=== PATIENT | female | born 2000 | race Caucasian/White ===

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

== ENCOUNTER 2022-03-10 22:05 | Emergency (ER) | payer OTHER ==
[2022-03-10 23:07] VITALS: TEMP 98.6
[2022-03-11] MEDS ORDERED: SODIUM CHLORIDE 0.9% 1,000 ML IV ONE (01:20)
[2022-03-11 02:00] LABS: Basophils # (A) 0.1 k/uL (0-0.2); Basophils % (A) 1 %; Eosinophils # (A) 0.2 k/uL (0-0.7); Eosinophils % (A) 2 %; HCT 35.5 % (34.0-46.0); HGB 11.5 gm/dL (11.4-16.0); Lymphocytes # (A) 4.5 k/uL (1.0-4.8); Lymphocytes % (A) 42 %; MCH 27.2 pg (25.0-35.0); MCHC 32.5 g/dL (31.0-37.0); MCV 83.7 fL (80.0-100.0); Mean Platelet Volume 7.4; Monocytes # (A) 0.6 k/uL (0-1.0); Monocytes % (A) 6 %; Neutrophils # (A) 5.1 k/uL (1.3-7.7); Neutrophils % (A) 48 %; Platelet Count 253 k/uL (150-450); RBC 4.24 m/uL (3.80-5.40); RDW 14.4 % (11.5-15.5); WBC 10.6 k/uL (4.0-11.0)
--- NOTE | 2022-03-11 02:12 | ED ---
Female Urogenital HPI - General Chief complaint: Vaginal Bleeding Stated complaint: Spotting blood Time Seen by Provider: 03/11/22 01:19 Source: patient, RN notes reviewed Mode of arrival: ambulatory Limitations: no limitations - History of Present Illness Initial comments: This is a pleasant 21-year-old female. She presents immersed Saturday complaining of vaginal spotting. Patient states this is much less than a normal period she had minimal cramping earlier which has resolved. Patient states her last visit. He was about one and half to 2 months ago. Patient doesn't recall the actual date. Patient is A0. No headache, no fever or chills, no changes in vision or hearing, no sore throat or difficulty with speech, no neck pain, no chest pain or shortness of breath, no abdominal pain, no nausea or vomiting, no changes in urination or bowel movements, no numbness or tingling, no extremity pain, no skin rashes or lesions. MD Complaint: vaginal bleeding - Related Data Home Medications Medication Instructions Recorded Confirmed Benzoyl Peroxide [Benzoyl Peroxide 1 applic TOPICAL DAILY PRN 05/18/21 05/18/21 Cleanser] Previous Rx's Medication Instructions Recorded Ondansetron Odt [Zofran ODT] 4 mg PO Q8HR PRN #10 tab 04/29/21 Sertraline [Zoloft] 50 mg PO DAILY tab 05/12/21 traMADol HCl [Ultram] 50 mg PO TID PRN #9 tab 05/12/21 Allergies Allergy/AdvReac Type Severity Reaction Status Date / Time No Known Allergies Allergy Verified 03/10/22 23:07 Review of Systems ROS Statement: Those systems with pertinent positive or pertinent negative responses have been documented in the HPI. ROS Other: All systems not noted in ROS Statement are negative. Past Medical History Past Medical History: No Reported History Additional Past Medical History / Comment(s): Vag 02/17/21 History of Any Multi-Drug Resistant Organisms: None Reported Past Surgical History: Cholecystectomy Additional Past Surgical History / Comment(s): bile duct stent Past Anesthesia/Blood Transfusion Reactions: No Reported Reaction Past Psychological History: ADD/ADHD Smoking Status: Vaper Past Alcohol Use History: Rare Past Drug Use History: Marijuana General Exam Limitations: no limitations General appearance: alert, in no apparent distress Head exam: Present: atraumatic, normocephalic, normal inspection Eye exam: Present: normal appearance, PERRL, EOMI. Absent: scleral icterus, conjunctival injection, periorbital swelling ENT exam: Present: normal exam, mucous membranes moist Neck exam: Present: normal inspection. Absent: tenderness, meningismus, lymphadenopathy Respiratory exam: Present: normal lung sounds bilaterally. Absent: respiratory distress, wheezes, rales, rhonchi, stridor Cardiovascular Exam: Present: regular rate, normal rhythm, normal heart sounds. Absent: systolic murmur, diastolic murmur, rubs, gallop, clicks GI/Abdominal exam: Present: soft, normal bowel sounds. Absent: distended, tenderness, guarding, rebound, rigid Extremities exam: Present: normal inspection, full ROM, normal capillary refill. Absent: tenderness, pedal edema, joint swelling, calf tenderness Back exam: Present: normal inspection Neurological exam: Present: alert, oriented X3, CN II-XII intact Psychiatric exam: Present: normal affect, normal mood Skin exam: Present: warm, dry, intact, normal color. Absent: rash Course Vital Signs 03/10/22 03/11/22 23:01 02:07 Temperature 98.6 F Pulse Rate 88 74 Respiratory 15 16 Rate Blood Pressure 107/65 112/66 O2 Sat by Pulse 97 98 Oximetry Medical Decision Making - Lab Data Result diagrams: 03/11/22 01:51 03/11/22 01:51 Lab Results 03/11/22 03/11/22 03/11/22 Range/Units 01:51 01:51 01:53 WBC 10.6 (4.0-11.0) k/uL RBC 4.24 (3.80-5.40) m/uL Hgb 11.5 (11.4-16.0) gm/dL Hct 35.5 (34.0-46.0) % MCV 83.7 (80.0-100.0) fL MCH 27.2 (25.0-35.0) pg MCHC 32.5 (31.0-37.0) g/dL RDW 14.4 (11.5-15.5) % Plt Count 253 (150-450) k/uL MPV 7.4 Neutrophils % 48 % Lymphocytes % 42 % Monocytes % 6 % Eosinophils % 2 % Basophils % 1 % Neutrophils # 5.1 (1.3-7.7) k/uL Lymphocytes # 4.5 (1.0-4.8) k/uL Monocytes # 0.6 (0-1.0) k/uL Eosinophils # 0.2 (0-0.7) k/uL Basophils # 0.1 (0-0.2) k/uL Sodium 140 (137-145) mmol/L Potassium 3.9 (3.5-5.1) mmol/L Chloride 108 H (98-107) mmol/L Carbon Dioxide 24 (22-30) mmol/L Anion Gap 8 mmol/L BUN 11 (7-17) mg/dL Creatinine 0.58 (0.52-1.04) mg/dL Est GFR (CKD-EPI)AfAm >90 (>60 ml/min/1.73 sqM) Est GFR (CKD-EPI)NonAf >90 (>60 ml/min/1.73 sqM) Glucose 86 (74-99) mg/dL Calcium 9.3 (8.4-10.2) mg/dL Total Bilirubin 0.3 (0.2-1.3) mg/dL AST 23 (14-36) U/L ALT 20 (4-34) U/L Alkaline Phosphatase 65 (38-126) U/L Total Protein 7.5 (6.3-8.2) g/dL Albumin 4.3 (3.5-5.0) g/dL HCG, Quant 1277.9 mIU/mL Urine Color Urine Appearance (Clear) Urine pH (5.0-8.0) Ur Specific [place] (1.001-1.035) Urine Protein (Negative) Urine Glucose (UA) (Negative) Urine Ketones (Negative) Urine Blood (Negative) Urine Nitrite (Negative) Urine Bilirubin (Negative) Urine Urobilinogen (<2.0) mg/dL Ur Leukocyte Esterase (Negative) Blood Type A Positive Blood Type Recheck A Pos Bld Type Recheck Status No 03/11/22 Range/Units 02:50 WBC (4.0-11.0) k/uL RBC (3.80-5.40) m/uL Hgb (11.4-16.0) gm/dL Hct (34.0-46.0) % MCV (80.0-100.0) fL MCH (25.0-35.0) pg MCHC (31.0-37.0) g/dL RDW (11.5-15.5) % Plt Count (150-450) k/uL MPV Neutrophils % % Lymphocytes % % Monocytes % % Eosinophils % % Basophils % % Neutrophils # (1.3-7.7) k/uL Lymphocytes # (1.0-4.8) k/uL Monocytes # (0-1.0) k/uL Eosinophils # (0-0.7) k/uL Basophils # (0-0.2) k/uL Sodium (137-145) mmol/L Potassium (3.5-5.1) mmol/L Chloride (98-107) mmol/L Carbon Dioxide (22-30) mmol/L Anion Gap mmol/L BUN (7-17) mg/dL Creatinine (0.52-1.04) mg/dL Est GFR (CKD-EPI)AfAm (>60 ml/min/1.73 sqM) Est GFR (CKD-EPI)NonAf (>60 ml/min/1.73 sqM) Glucose (74-99) mg/dL Calcium (8.4-10.2) mg/dL Total Bilirubin (0.2-1.3) mg/dL AST (14-36) U/L ALT (4-34) U/L Alkaline Phosphatase (38-126) U/L Total Protein (6.3-8.2) g/dL Albumin (3.5-5.0) g/dL HCG, Quant mIU/mL Urine Color Yellow Urine Appearance Clear (Clear) Urine pH 7.0 (5.0-8.0) Ur Specific [place] 1.019 (1.001-1.035) Urine Protein Negative (Negative) Urine Glucose (UA) Negative (Negative) Urine Ketones Negative (Negative) Urine Blood Negative (Negative) Urine Nitrite Negative (Negative) Urine Bilirubin Negative (Negative) Urine Urobilinogen <2.0 (<2.0) mg/dL Ur Leukocyte Esterase Negative (Negative) Blood Type Blood Type Recheck Bld Type Recheck Status - Radiology Data Radiology results: report reviewed, image reviewed Disposition Clinical Impression: Threatened miscarriage in early Disposition: HOME SELF-CARE Condition: Good Instructions (If sedation given, give patient instructions): Threatened Miscarriage (ED) Additional Instructions: Return later today between the hours of 8 AM and 5 PM for an outpatient pelvic ultrasound. Return laboratory in 48 hours for a repeat blood test. Make a follow-up appointment with Dr. Alvarez. Have the results of your testing sent to Dr. Kim Burnette. Follow-up with your regular physician as directed. Return to the ER immediately if any symptoms worsen, new symptoms arise, or any other problems develop. Is patient prescribed a controlled substance at d/c from ED?: No Referrals: Derian Burnette Jr, DO [Primary Care Provider] - 1-2 days
[2022-03-11 02:13] LABS: ALT 20 U/L (4-34); AST 23 U/L (14-36); African American GFR (CKD) >90 (>60 ml/min/1.73 sqM); Albumin 4.3 g/dL (3.5-5.0); Alkaline Phosphatase 65 U/L (38-126); Anion Gap 8 mmol/L; Blood Urea Nitrogen 11 mg/dL (7-17); Calcium 9.3 mg/dL (8.4-10.2); Carbon Dioxide 24 mmol/L (22-30); Chloride 108 mmol/L (98-107); Glucose 86 mg/dL (74-99); Non-African American GFR(CKD) >90 (>60 ml/min/1.73 sqM); Potassium 3.9 mmol/L (3.5-5.1); Sodium 140 mmol/L (137-145); Total Bilirubin 0.3 mg/dL (0.2-1.3); Total Protein 7.5 g/dL (6.3-8.2)
[2022-03-11 02:29] LABS: HCG,Quantitative Serum 1277.9 mIU/mL
[2022-03-11 02:41] VITALS: BP 112/66; PULSE 74; RESP 16
[2022-03-11 03:07] LABS: Appearance,Urine Clear (Clear); Bilirubin,Urine Negative (Negative); Blood,Urine Negative (Negative); Color,Urine Yellow; Glucose,Urine (UA) Negative (Negative); Ketones,Urine Negative (Negative); Leukocyte Esterase,Urine Negative (Negative); Nitrite,Urine Negative (Negative); Protein,Urine Negative (Negative); Specific Gravity,Urine 1.019 (1.001-1.035); Urobilinogen,Urine <2.0 mg/dL (<2.0)
== END 2022-03-11 03:41 | disposition home or self-care (01) ==
LOC: EC 22:05
DX: O20.0 Threatened abortion (principal); F17.209 Nicotine dependence, unspecified, with unspecified nicotine-induced disorders; Z3A.00 Weeks of gestation of pregnancy not specified
CPT/HCPCS: 36415; 80053; 81003; 84702; 85025; 86900; 86901

== ENCOUNTER → 2022-03-12 | Outpatient (CLI) | payer OTHER ==
--- NOTE | 2022-03-12 10:24 | US ---
EXAMINATION TYPE: Transabdominal DATE OF EXAM: 03/12/2022 9:25 AM COMPARISON: NONE CLINICAL HISTORY: O20.0 THREATENED . Patient seen in EC last night, given an order to arrive in the department this morning. Patient has not seen OBGYN yet for this . 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 . Positive beta-hCG test. EXAM PERFORMED: Transvaginal (TV) and Transabdominal (TA) EXAM MEASUREMENTS: GESTATIONAL AGE / DATING Physician Established: ( weeks/ days) EDC: Not established Dates by LMP: (4 weeks/6 days) EDC: 11/13/22 Dates by First Scan: ( weeks/ days) EDC: No previous Dates by Current Scan for: ( weeks/ days) EDC: MATERNAL ANATOMY Uterus: 8.8 x 6.1 x 4.3 cm with cervical cyst = 0.4 cm Right Ovary: 2.8 x 2.2 x 1.6 cm Left Ovary: 3.2 x 2.0 x 1.7 cm Post CDS / Adnexa: wnl Presence of free fluid: no Presence of corpus luteal cyst: ? Masslike structure off right ovary= 2.1 x 2.3 x 1.7 cm with cystic area =1.5 x 1.0 x 0.5 cm Presence of subchorionic bleed: no GESTATION / SURVEY CRL: No definite pole seen ( weeks/ days) MSD: 0.6 cm ( 5 weeks/1 days) Yolk Sac (normal less than 6mm): Not seen Heart Rate: Not seen bpm Rhythm: IUP: No IUP seen at this time Date of LMP: 02/10/22 Beta HcG (if available): Patient sent for bloodwork after ultrasound. Heterogeneous anteverted uterus.Endometrium thickened up to 11 mm. There is central oval 7 x 7 x 3 mm structure could reflect early gestational sac. There is Suggestion of developing pole measurin g 1 mm. No yolk sac. No free fluid in pelvis. Both ovaries are seen. Within right ovary there a a few tiny thin-walled cysts. There is however alicia cent right ovary a mass with central oval anechoic or cystic component and peripheral thickened wall. IMPRESSION: Above findings could reflect too early to visualize intrauterine but ectopic pr egnancy and/or heterotopic needs to be considered given the right adnexal extraovarian mass . Serial beta hCG and ultrasound follow-up advised.
== END | disposition home or self-care (01) ==
LOC: RADUSWWP 08:41
PROVIDERS: ATTEND Emergency Medicine
DX: O20.0 Threatened abortion (principal); Z3A.00 Weeks of gestation of pregnancy not specified
CPT/HCPCS: 76801; 76817

== ENCOUNTER 2022-03-23 09:10 | Emergency (ER) | payer OTHER ==
[2022-03-23 09:41] VITALS: PULSE 92; RESP 18; TEMP 98.6
[2022-03-23 09:43] VITALS: BP 100/62
[2022-03-23 10:32] LABS: HCT 40.5 % (34.0-46.0); HGB 12.9 gm/dL (11.4-16.0); MCH 26.9 pg (25.0-35.0); Mean Platelet Volume 7.1; Platelet Count 303 k/uL (150-450); RBC 4.82 m/uL (3.80-5.40); RDW 14.2 % (11.5-15.5)
--- NOTE | 2022-03-23 11:24 | ED ---
Female Urogenital HPI - General Chief complaint: Vaginal Bleeding Stated complaint: vaginal bleeding, early Time Seen by Provider: 03/23/22 10:08 Source: patient Mode of arrival: ambulatory Limitations: no limitations - History of Present Illness Initial comments: Patient is a 21-year-old A0 female at approximately 7 weeks who presents to the emergency department with a chief complaint of vaginal bleeding. Patient initially had spotting on 03/10 with minimal cramping. She was evaluated in the emergency department with a serum hCG was 1,277.9. Ultrasound was not available so patient returned for outpatient ultrasound on 03/12. Ultrasound showed a possible early gestational sac and suggestion of a developing pole with no yolk sac. There was also a right ovarian mass. Patient has not followed up with her OBGYN Dr. Alvarez yet. She states that yesterday around 3 AM she felt a dubon of blood in her underwear. Possibly one small clot. She then put a pad on and reports minimal spotting on her pad. She reports mild abdominal cramping that has since resolved. She does admit to vaginal intercourse prior to falling asleep. Patient did come to the emergency department at this time however left without being seen. She presents now requesting ultrasound. Denies fever, chills, burning with urination, and other concerns. - Related Data Home Medications Medication Instructions Recorded Confirmed Benzoyl Peroxide [Benzoyl Peroxide 1 applic TOPICAL DAILY PRN 05/18/21 05/18/21 Cleanser] Previous Rx's Medication Instructions Recorded Ondansetron Odt [Zofran ODT] 4 mg PO Q8HR PRN #10 tab 04/29/21 Sertraline [Zoloft] 50 mg PO DAILY tab 05/12/21 traMADol HCl [Ultram] 50 mg PO TID PRN #9 tab 05/12/21 Cephalexin [Keflex] 250 mg PO Q6HR #20 cap 03/23/22 Allergies Allergy/AdvReac Type Severity Reaction Status Date / Time No Known Allergies Allergy Verified 03/23/22 09:41 Review of Systems ROS Statement: Those systems with pertinent positive or pertinent negative responses have been documented in the HPI. ROS Other: All systems not noted in ROS Statement are negative. Past Medical History Past Medical History: No Reported History Additional Past Medical History / Comment(s): Vag 02/17/21 History of Any Multi-Drug Resistant Organisms: None Reported Past Surgical History: Cholecystectomy Additional Past Surgical History / Comment(s): bile duct stent Past Anesthesia/Blood Transfusion Reactions: No Reported Reaction Past Psychological History: ADD/ADHD Smoking Status: Vaper Past Alcohol Use History: Rare Past Drug Use History: Marijuana General Exam Limitations: no limitations General appearance: alert, in no apparent distress Head exam: Present: atraumatic, normocephalic, normal inspection Eye exam: Present: normal appearance, PERRL, EOMI. Absent: scleral icterus, conjunctival injection, periorbital swelling ENT exam: Present: normal exam, mucous membranes moist Respiratory exam: Present: normal lung sounds bilaterally. Absent: respiratory distress, wheezes, rales, rhonchi, stridor Cardiovascular Exam: Present: regular rate, normal rhythm, normal heart sounds. Absent: systolic murmur, diastolic murmur, rubs, gallop, clicks GI/Abdominal exam: Present: soft, normal bowel sounds. Absent: distended, tenderness, guarding, rebound, rigid Back exam: Present: normal inspection, full ROM. Absent: tenderness Neurological exam: Present: alert, oriented X3, CN II-XII intact Psychiatric exam: Present: normal affect, normal mood Skin exam: Present: warm, dry, intact, normal color. Absent: rash Course Vital Signs 03/23/22 09:37 Temperature 98.6 F Pulse Rate 92 Respiratory 18 Rate Blood Pressure 100/62 O2 Sat by Pulse 94 L Oximetry Medical Decision Making - Medical Decision Making This is a 21-year-old female presenting with vaginal bleeding. Thorough history and examination were performed. Patient is afebrile. Denies fever and chills. Abdomen is soft and nontender. I will obtain serum beta hCG for trending as well as ultrasound. Ultrasound shows a single live intrauterine gestation and a now identified gestational sac, yolk sac and pole. Beta hCG is 55,617. RhoGam is not indicated. Results discussed with patient. Patient states she has an appointment with Dr. Alvarez the first week of March. She is instructed to follow-up with Dr. Alvarez as scheduled for beta HCG trending. I recommended one week of pelvic rest and until vaginal bleeding is completely resolved. She is instructed to return if she experiences more vaginal bleeding, abdominal pain, or other new or concerning symptoms. Patient verbalizes understanding and is agreeable to this plan. Patient did leave with urinalysis pending. There is possible infection however it is contaminated with squamous cells. I will treat for urinary tract infection. I sent prescription to pharmacy. I also called patient and left a message on her voicemail. Dr. Wooten is my attending. - Lab Data Result diagrams: 03/23/22 10:18 Lab Results 03/23/22 03/23/22 03/23/22 Range/Units 10:18 10:18 11:56 WBC 10.0 (4.0-11.0) k/uL RBC 4.82 (3.80-5.40) m/uL Hgb 12.9 (11.4-16.0) gm/dL Hct 40.5 (34.0-46.0) % MCV 84.0 (80.0-100.0) fL MCH 26.9 (25.0-35.0) pg MCHC 32.0 (31.0-37.0) g/dL RDW 14.2 (11.5-15.5) % Plt Count 303 (150-450) k/uL MPV 7.1 HCG, Quant 61806.2 mIU/mL Urine Color Yellow Urine Appearance Cloudy H (Clear) Urine pH 6.0 (5.0-8.0) Ur Specific [place] 1.029 (1.001-1.035) Urine Protein Trace H (Negative) Urine Glucose (UA) Negative (Negative) Urine Ketones Negative (Negative) Urine Blood Moderate H (Negative) Urine Nitrite Negative (Negative) Urine Bilirubin Negative (Negative) Urine Urobilinogen <2.0 (<2.0) mg/dL Ur Leukocyte Esterase Trace H (Negative) Urine RBC 3 (0-5) /hpf Urine WBC 2 (0-5) /hpf Ur Squamous Epith Cells 18 H (0-4) /hpf Urine Bacteria Rare H (None) /hpf Urine Mucus Many H (None) /hpf Disposition Clinical Impression: Vaginal bleeding during Disposition: HOME SELF-CARE Condition: Good Instructions (If sedation given, give patient instructions): Non-Threatening F irst Trimester Vaginal Bleed (ED) Additional Instructions: Please abstain from vaginal intercourse for one week and until resolution of bleeding. Follow-up with your INSURANCE FOLLOW UP REPRESENTATIVE at her previously scheduled appointment in early March. Return to the emergency department if you experience new, concerning, or worsening symptoms. Prescriptions: Cephalexin [Keflex] 250 mg PO Q6HR #20 cap Is patient prescribed a controlled substance at d/c from ED?: No Referrals: Derian Burnette Jr, [Primary Care Provider] - 1-2 days Time of Disposition: 11:46
--- NOTE | 2022-03-23 11:31 | US ---
EXAMINATION TYPE: Transabdominal DATE OF EXAM: 03/23/2022 11:01 AM COMPARISON: Prior ultrasound 11 days ago CLINICAL HISTORY: vaginal bleeding. vaginal bleeding after intercourse, cramping EXAM PERFORMED: Transabdominal (TA) EXAM MEASUREMENTS: GESTATIONAL AGE / DATING Physician Established: Not yet established Dates by LMP: (6 weeks/3 days) EDC: 11/13/22 Dates by First Scan: too early to visualize Dates by Current Scan for: (6 weeks/2 days) EDC: 11/14/22 MATERNAL ANATOMY Uterus: 8.0 x 5.2 x 6.6cm Right Ovary: 3.5 x 1.5 x 1.8cm Left Ovary: 2.3 x 1.2 x 1.4cm Post CDS / Adnexa: wnl Presence of free fluid: no Presence of corpus luteal cyst: yes, complex area right ovary = 2.2 x 1.9 x 2.1cm Presence of subchorionic bleed: yes, superior to GS = 3.4 x 2.1 x 2.3cm GESTATION / SURVEY CRL: 0.5cm (6 weeks/2 days) Yolk Sac (normal less than 6mm): 2.8mm Heart Rate: 114 bpm Rhythm: Normal IUP: Viable IUP Date of LMP: 02/06/22 Beta HcG (if available): Not available at this time Single live intrauterine gestation is now identified as gestational sac, yolk sac, and pole are seen. There is moderate to large size adjacent fluid collection or hematoma measuring 3.4 x 2.1 x 2. 3 cm greater incisors and the adjacent gestational sac. No free fluid in the pelvis. Both ovaries are seen. Corpus luteal cyst within the right ovary is suspected. IMPRESSION: As above. Short-term beta-hCG and ultrasound monitoring is advised.
[2022-03-23 12:21] LABS: Appearance,Urine Cloudy (Clear); Bacteria,Urine Rare /hpf; Bilirubin,Urine Negative (Negative); Blood,Urine Moderate (Negative); Color,Urine Yellow; Glucose,Urine (UA) Negative (Negative); Ketones,Urine Negative (Negative); Leukocyte Esterase,Urine Trace (Negative); Mucus,Urine Many /hpf; Nitrite,Urine Negative (Negative); Protein,Urine Trace (Negative); RBC,Urine 3 /hpf (0-5); Specific Gravity,Urine 1.029 (1.001-1.035); Squamous Epithelial Cell,Urine 18 /hpf (0-4); Urobilinogen,Urine <2.0 mg/dL (<2.0); WBC,Urine 2 /hpf (0-5)
== END 2022-03-23 12:34 | disposition home or self-care (01) ==
LOC: EC 09:10
DX: O20.9 Hemorrhage in early pregnancy, unspecified (principal); O99.331 Smoking (tobacco) complicating pregnancy, first trimester; F90.9 Attention-deficit hyperactivity disorder, unspecified type; Z72.89 Other problems related to lifestyle; F12.90 Cannabis use, unspecified, uncomplicated; F17.290 Nicotine dependence, other tobacco product, uncomplicated; Z3A.01 Less than 8 weeks gestation of pregnancy
CPT/HCPCS: 36415; 76801; 81001; 84702; 85027; 99284

== ENCOUNTER → 2022-05-01 | Outpatient (CLI) | payer OTHER ==
--- NOTE | 2022-05-01 10:35 | US ---
EXAMINATION TYPE: US abdomen limited DATE OF EXAM: 05/01/2022 COMPARISON: 05/18/21 CLINICAL HISTORY: 21-year-old female K80.37 CALCULUS OF BILE DUCT. RUQ pain. Cholecystectomy in 2020. Stent placed in bile duct in 2020. TECHNIQUE: Multiple sonographic images of the right upper quadrant are obtained. FINDINGS: EXAM MEASUREMENTS: Liver Length: 13.2 cm Gallbladder Wall: Surgically absent CBD: 0.53 cm Right Kidney: 10.3 x 4.8 x 3.9 cm Pancreas: Obscured by bowel gas Liver: wnl Gallbladder: Surgically absent Evidence for sonographic Fernandez's sign: No CBD: Upper limits of normal in caliber. Stent seen within. No stones seen. Right Kidney: wnl IMPRESSION: Bile duct caliber upper limits of normal at 5.3 mm. A biliary stent is noted within. Status post chol ecystectomy. Suboptimal visualization of the pancreas. Otherwise, no specific abnormality seen.
== END | disposition home or self-care (01) ==
LOC: RADUSWWP 09:09
PROVIDERS: ATTEND Internal Medicine Gastroenterology
DX: Z96.0 Presence of urogenital implants (principal); Z90.49 Acquired absence of other specified parts of digestive tract
CPT/HCPCS: 76705

== ENCOUNTER 2022-11-07 10:02 | Inpatient (IN) | payer OTHER ==
[2022-11-07] MEDS ORDERED: LIDOCAINE 0.5% (PF) 5 MG/ML (50 ML SDV) SQ PRN (10:35)
[2022-11-07] MEDS ORDERED: TERBUTALINE 1 MG/ML VIAL SQ PRN (10:35)
[2022-11-07] MEDS ORDERED: PENICILLIN G POTASSIUM 5,000,000 UNIT in DEXTROSE 5% IN WATER 100 ML IVPB STA ×2 (10:41)
[2022-11-07] MEDS: LACTATED RINGERS 1,000 ML IV SCH ×2 (11:06→11:45)
[2022-11-07] MEDS ORDERED: ROPIVACAINE 5 MG/ML 20 ML AMPULE ONE (11:23)
[2022-11-07] MEDS ORDERED: SODIUM CHLORIDE 0.9% 100 ML BAG ONE (11:23)
[2022-11-07] MEDS ORDERED: fentaNYL (PF) 50 MCG/ML 5 ML AMP ONE (11:23)
[2022-11-07 11:29] LABS: Basophils # (A) 0.1 k/uL (0-0.2); Basophils % (A) 0 %; Eosinophils % (A) 0 %; HCT 33.4 % (34.0-46.0); HGB 11.4 gm/dL (11.4-16.0); Lymphocytes % (A) 25 %; MCHC 34.1 g/dL (31.0-37.0); MCV 82.3 fL (80.0-100.0); Mean Platelet Volume 7.9; Monocytes # (A) 0.7 k/uL (0-1.0); Monocytes % (A) 6 %; Neutrophils # (A) 8.2 k/uL (1.3-7.7); Neutrophils % (A) 67 %; Platelet Count 224 k/uL (150-450); RBC 4.06 m/uL (3.80-5.40); RDW 14.9 % (11.5-15.5); WBC 12.1 k/uL (4.0-11.0)
[2022-11-07] MEDS ORDERED: OXYTOCIN 30 UNITS/500 ML NS 30 UNIT in SALINE 1 500ML.BAG IV SCH (12:09)
--- NOTE | 2022-11-07 12:25 | P.HPOB ---
History of Present Illness H&P Date: 11/07/22 Chief Complaint: Strong regular uterine contractions This is a 22-year-old 2 para 1001 EDC 11/13/2022 at 39 and one sevenths weeks' gestation. Patient presents with strong regular uterine contractions. She also reports fluid leakage. Fetus is been active throughout the . history significant for blood type A+, rubella status immune. VDRL testing, urine culture, hepatitis B surface antigen, HIV testing, gonorrhea and chlamydia cultures all negative. One-hour Glucola elevated, 3 hour GTT within normal limits. Group B strep cultures positive. Past medical history is significant for maternal obesity, cholelithiasis. Past surgical history significant for stent placed in the common bile duct. Social history patient is single, she denies alcohol or tobacco use. Positive for marijuana use. Current medications vitamins daily, baby aspirin daily. Social history patient is single, social marijuana use noted. She has good [facility] support. On exam patient is 5 foot 2 inches, 238 pounds, vital signs are stable and she is afebrile including a blood pressure 135/73. General physical exam is within normal limits. On admission patient was 6-7 cm dilated, vertex presentation, 70% effaced, -2 station. heart rate consistent with reactive NST. Impression: 39 and one sevenths weeks intrauterine , active spontaneous labor. Positive group B strep cultures. Plan: Penicillin G per protocol. Close maternal and surveillance. Epidural may be placed. Anticipate normal spontaneous vaginal delivery. Past Medical History Past Medical History: No Reported History Additional Past Medical History / Comment(s): HAS BILE DUCT STENT FROM 2020 History of Any Multi-Drug Resistant Organisms: None Reported Past Surgical History: Cholecystectomy Additional Past Surgical History / Comment(s): bile duct stent, removed Past Anesthesia/Blood Transfusion Reactions: No Reported Reaction Past Psychological History: No Psychological Hx Reported Smoking Status: Vaper Past Alcohol Use History: None Reported Past Drug Use History: Marijuana Additional Drug Use History / Comment(s): MARIJUANA USE pt states she used last 2 weeks ago - Past Family History Mother Family Medical History: No Reported History Medications and Allergies Home Medications Medication Instructions Recorded Confirmed Type No Known Home Medications 11/07/22 11/07/22 History Allergies Allergy/AdvReac Type Severity Reaction Status Date / Time No Known Allergies Allergy Verified 11/07/22 10:34 Exam Vital Signs Temp Pulse Resp BP Pulse Ox 11/07/22 10:34 96.3 F L 104 H 18 135/73 95 Intake and Output 11/06/22 11/07/22 11/07/22 22:59 06:59 14:59 Other: Weight 107.955 kg See dictation under HPI please Results Result Diagrams: 11/07/22 10:46 Abnormal Lab Results - Last 24 Hours (Table) 11/07/22 Range/Units 10:46 WBC 12.1 H (4.0-11.0) k/uL Hct 33.4 L (34.0-46.0) % Neutrophils # 8.2 H (1.3-7.7) k/uL Assessment and Plan Assessment: 39 and one sevenths weeks intrauterine , active spontaneous labor, positive group B strep cultures. All signs otherwise reassuring. Plan: Analgesic options reviewed. Close maternal and surveillance. Anticipate normal spontaneous vaginal delivery. Penicillin G per protocol. First dose has been given. Time with Patient: Less than 30
[2022-11-07] MEDS ORDERED: diphenhydrAMINE 25 MG CAP PO PRN (12:28)
[2022-11-07] MEDS ORDERED: BENZOCAINE/MENTHOL SPRAY 1 GM/SPRAY AEROSOL TOPICAL PRN (12:28)
[2022-11-07] MEDS ORDERED: ZOLPIDEM 5 MG TAB PO PRN (12:28)
[2022-11-07] MEDS ORDERED: diphenhydrAMINE 50 MG CAP PO PRN (12:28)
[2022-11-07] MEDS ORDERED: diphenhydrAMINE ELIXIR 25 MG/10 ML CUP PO PRN (12:28)
[2022-11-07] MEDS ORDERED: diphenhydrAMINE 50 MG/ML 1 ML VIAL IVP PRN ×2 (12:28)
[2022-11-07] MEDS ORDERED: HYDROCORTISONE 2.5% RECTAL CREAM 30 GM TUBE RECTAL PRN (12:28)
[2022-11-07] MEDS ORDERED: SIMETHICONE 80 MG CHEWABLE PO PRN (12:28)
[2022-11-07] MEDS ORDERED: LANOLIN CREAM 5 GM TUBE TOPICAL PRN (12:28)
--- NOTE | 2022-11-07 12:28 | P.PROBDLV ---
Vaginal Delivery Note - . Vaginal Delivery Note: This is a 22-year-old female 2 para 1001 EDC 11/13/2022 at 39 and one sevenths weeks' gestation. Patient presented in active spontaneous labor from home. is remarkable for positive group B strep cultures, penicillin G given 1 dose. Please see dictated history and physical for details. Artificial amniorrhexis at the bedside does reveal clear fluid. Patient became completely dilated at 1203 hrs. She began the second stage of labor at that time. Perineal body was prepped and draped in usual sterile fashion. Please note that one dose of penicillin G had been received for history of positive group B strep cultures. With excellent maternal expulsive efforts the head delivered occiput anterior and restituted accordingly. There was a nuchal cord 1 that was tight, but reduced on the perineal body. The left or anterior shoulder was delivered from underneath the pubic symphysis at which time the oropharynx, nasopharynx, and external nares were all bulb suction. Patient was officially delivered of a liveborn male infant at 1207 hrs. Umbilical cord was doubly clamped and ligated, he was handed to waiting nurses for evaluation where scores of 9 and 9 at one and 5 minutes respectively were given. Placenta delivered spontaneously, inspected and noted to be intact with trivascular cord at 1209 hrs. Uterus is massaged. Careful inspection of the cervix, vagina, perineum, periurethral, and perirectal areas revealed no lacera tions or defects. Infant weight 8 pounds 11.5 ounces or 3955 g. She is requesting circumcision for her infant son. Total estimated blood loss 300 mL's. Patient and her family are allowed to begin the bonding experience in the LDR.
[2022-11-07] MEDS: IBUPROFEN 600 MG TAB PO SCH ×2 (12:35→19:43)
[2022-11-07] MEDS ORDERED: PENICILLIN G POTASSIUM 2,500,000 UNIT in DEXTROSE 5% IN WATER 100 ML IVPB SCH ×2 (15:00)
[2022-11-07] MEDS: ACETAMINOPHEN TAB 325 MG TAB PO PRN ×2 (15:45→23:27)
[2022-11-08] MEDS: FAMOTIDINE 20 MG TAB PO SCH ×2 (00:09→09:04)
[2022-11-08] MEDS: SENNOSIDES-DOCUSATE SODIUM 1 EACH TAB PO SCH ×3 (00:24→21:01)
[2022-11-08] MEDS: IBUPROFEN 600 MG TAB PO SCH ×5 (02:14→21:02)
[2022-11-08] MEDS: ACETAMINOPHEN TAB 325 MG TAB PO PRN ×2 (05:31→23:31)
--- NOTE | 2022-11-08 09:23 | P.PN ---
Subjective Progress Note Date: 11/08/22 Principal diagnosis: Doing well first day Positive flatus. Minimal lochia rubra. No complaints Objective - Vital Signs Vital signs: Vital Signs Temp 97.8 F 11/08/22 08:00 Pulse 94 11/08/22 08:00 Resp 16 11/08/22 08:00 BP 119/71 11/08/22 08:00 Pulse Ox 98 11/08/22 00:00 FiO2 Intake & Output 11/07/22 11/08/22 11/08/22 18:59 06:59 18:59 Intake Total 167 Output Total 510 Balance -343 Weight 107.955 kg Intake: Intake, IV Titration 167 Amount Oxytocin 30 Units/500 ml 167 Ns 30 unit In Saline 1 500ml.bag @ Per Protocol IV .Q0M ELÍAS Rx#:[id number] Output: Estimated Blood Loss 300 Output, Quantitative 210 Blood Loss Other: # Voids 1 1 1 - Constitutional General appearance: Present: average body habitus, cooperative - EENT Eyes: Present: PERRLA - Neck Neck: Present: normal ROM Thyroid: bilateral: normal size - Respiratory Respiratory: bilateral: CTA - Cardiovascular Rhythm: regular - Gastrointestinal General gastrointestinal: Present: normal bowel sounds - Integumentary Integumentary: Present: normal - Neurologic Neurologic: Present: CNII-XII intact - Musculoskeletal Musculoskeletal: Present: gait normal, strength equal bilaterally - Psychiatric Psychiatric: Present: A&O x's 3, appropriate affect, intact judgment & insight - Labs CBC & Chem 7: 11/07/22 10:46 Labs: Abnormal Lab Results - Last 24 Hours (Table) 11/07/22 Range/Units 10:46 WBC 12.1 H (4.0-11.0) k/uL Hct 33.4 L (34.0-46.0) % Neutrophils # 8.2 H (1.3-7.7) k/uL Assessment and Plan Assessment: Doing well first post day Plan: Patient is stable for discharge home. is to stay an additional 24 hours due to positive group B strep cultures per link wire fabric machine tender. Therefore, likely discharge home tomorrow. Continue care. Time with Patient: Less than 30
[2022-11-08] MEDS ORDERED: LABETALOL 200 MG TAB PO SCH (21:00)
[2022-11-09] MEDS: IBUPROFEN 600 MG TAB PO SCH ×2 (06:54→14:23)
[2022-11-09] MEDS: ACETAMINOPHEN TAB 325 MG TAB PO PRN (09:00)
[2022-11-09] MEDS: FAMOTIDINE 20 MG TAB PO SCH (09:00)
[2022-11-09 09:06] VITALS: BP 100/66; PULSE 64; RESP 14; TEMP 97.6
[2022-11-09] MEDS: SENNOSIDES-DOCUSATE SODIUM 1 EACH TAB PO SCH (09:07)
--- NOTE | 2022-11-09 11:20 | P.DS ---
Providers Date of admission: 11/07/22 10:23 Expected date of discharge: 11/09/22 Attending physician: Sophia Alvarez Primary care physician: Stated None - Discharge Diagnosis(es) (1) Normal spontaneous vaginal delivery Current Visit: Yes Status: Acute Hospital Course: the patient is a 22-year-old 2 para 1001 admitted at 39 and one sevenths weeks in active labor. Her has been essentially uncomplicated though she is group B strep positive. Antibiotic prophylaxis was started. She made rapid progress through the active phase of labor to complete and pushed to a normal spontaneous vaginal delivery of a viable 8 lbs. 12 oz. baby boy with Apgars of 9 at 1 minute and 9 at 5 minutes. Her course was unremarkable with vital signs being stable and her temperature was afebrile throughout. The required blood cultures secondary to inadequate antibody prophylaxis. As a result, the patient was discharged on day #2 and was discharged home to follow-up in the office in 6 weeks routinely. Discharge instructions included calling for any significantly increased bleeding or foul- smelling lochia, significantly increased fever abdominal pain, perineal complaints, breast complaints, or anything else that concerned her. She was additionally instructed to have nothing in the vagina for at least 6 weeks time to include intercourse. She understood her instructions and agrees to follow up as noted above. Discharge medications included only [id number] analgesic pain medications. Maternal blood type is A+ and rubella status is immune. Procedures: #1. Artificial rupture of membranes #2. Normal spontaneous vaginal delivery Patient Condition at Discharge: Stable Plan - Discharge Summary New Discharge Prescriptions: No Action No Known Home Medications Discharge Medication List No Known Home Medications 11/07/22 [History] Follow up Appointment(s)/Referral(s): Sophia Alvarez MD [STAFF PHYSICIAN] - 6 Weeks Discharge Disposition: HOME SELF-CARE
== END 2022-11-09 17:35 | disposition home or self-care (01) | DRG 807 ==
LOC: FBPOP 10:02 → 4FBP 10:23
PROVIDERS: ADMIT Obstetrics & Gynecology; ATTEND Obstetrics & Gynecology
PROC: 10E0XZZ Delivery of Products of Conception, External Approach (ICD-10-PCS; principal; 2022-11-07)
DX: O99.824 Streptococcus B carrier state complicating childbirth (principal); Z37.0 Single live birth; O69.81X0 Labor and delivery complicated by cord around neck, without compression, not applicable or unspecified; Z3A.39 39 weeks gestation of pregnancy; Z79.82 Long term (current) use of aspirin
CPT/HCPCS: 84112; 85025; 86850; 86900; 86901; 99213

== ENCOUNTER 2023-05-30 05:13 | Emergency (ER) | payer OTHER ==
[2023-05-30 05:23] VITALS: RESP 18
[2023-05-30] MEDS ORDERED: ONDANSETRON ODT 4 MG TAB PO STA (05:58)
[2023-05-30 06:24] LABS: Basophils # (A) 0.1 k/uL (0-0.2); Basophils % (A) 1 %; Eosinophils # (A) 0.1 k/uL (0-0.7); Eosinophils % (A) 1 %; HCT 38.1 % (34.0-46.0); HGB 12.5 gm/dL (11.4-16.0); Lymphocytes # (A) 4.3 k/uL (1.0-4.8); Lymphocytes % (A) 35 %; MCH 27.3 pg (25.0-35.0); MCHC 32.8 g/dL (31.0-37.0); MCV 83.3 fL (80.0-100.0); Mean Platelet Volume 7.6; Monocytes # (A) 0.7 k/uL (0-1.0); Monocytes % (A) 5 %; Neutrophils # (A) 6.8 k/uL (1.3-7.7); Neutrophils % (A) 56 %; Platelet Count 290 k/uL (150-450); RBC 4.57 m/uL (3.80-5.40); RDW 14.5 % (11.5-15.5); WBC 12.2 k/uL (3.8-10.6)
[2023-05-30 06:33] LABS: Appearance,Urine Cloudy (Clear); Bacteria,Urine Rare /hpf; Bilirubin,Urine Negative (Negative); Blood,Urine Negative (Negative); Color,Urine Light Red; Glucose,Urine (UA) Negative (Negative); Ketones,Urine Negative (Negative); Leukocyte Esterase,Urine Negative (Negative); Mucus,Urine Many /hpf; Nitrite,Urine Negative (Negative); Protein,Urine Trace (Negative); RBC,Urine 2 /hpf (0-5); Specific Gravity,Urine 1.034 (1.001-1.035); Squamous Epithelial Cell,Urine 35 /hpf (0-4); WBC,Urine 3 /hpf (0-5)
[2023-05-30 06:41] LABS: ALT 26 U/L (4-34); AST 24 U/L (14-36); African American GFR (CKD) >90 (>60 ml/min/1.73 sqM); Albumin 4.3 g/dL (3.5-5.0); Alkaline Phosphatase 83 U/L (38-126); Amylase 46 U/L (30-110); Anion Gap 9 mmol/L; Blood Urea Nitrogen 11 mg/dL (7-17); Calcium 9.1 mg/dL (8.4-10.2); Carbon Dioxide 28 mmol/L (22-30); Chloride 104 mmol/L (98-107); Glucose 116 mg/dL (74-99); Lipase 90 U/L (23-300); Non-African American GFR(CKD) >90 (>60 ml/min/1.73 sqM); Potassium 3.7 mmol/L (3.5-5.1); Sodium 141 mmol/L (137-145); Total Bilirubin 0.3 mg/dL (0.2-1.3); Total Protein 7.9 g/dL (6.3-8.2)
[2023-05-30] MEDS ORDERED: droPERidol 5 MG/2 ML VIAL IVP ONE (08:20)
--- NOTE | 2023-05-30 08:25 | ED ---
General Adult HPI - General Chief complaint: Abdominal Pain Stated complaint: ABD Pain Time Seen by Provider: 05/30/23 08:00 Source: patient, RN notes reviewed, old records reviewed Mode of arrival: ambulatory Limitations: no limitations - History of Present Illness Initial comments: This is a 23-year-old female presents emergency department stating that on the she felt like she had some heartburn and on the first was her birthday so she went and did some drinking she woke up and was nauseous and started vomiting. Patient states again last night she felt sick to her stomach and started vomiting at about 1:00 in the morning. Patient comes in complaining of a little bit of epigastric abdominal pain and continued nausea. Patient denies any fevers or chills per patient denies any chest pain difficulty breathing. Patient has any diarrhea. - Related Data Home Medications Medication Instructions Recorded Confirmed No Known Home Medications 11/07/22 05/30/23 Allergies Allergy/AdvReac Type Severity Reaction Status Date / Time No Known Allergies Allergy Verified 05/30/23 09:53 Review of Systems ROS Statement: Those systems with pertinent positive or pertinent negative responses have been documented in the HPI. ROS Other: All systems not noted in ROS Statement are negative. Past Medical History Past Medical History: No Reported History Additional Past Medical History / Comment(s): HAS BILE DUCT STENT FROM 2020 History of Any Multi-Drug Resistant Organisms: None Reported Past Surgical History: Cholecystectomy Additional Past Surgical History / Comment(s): bile duct stent, removed Past Anesthesia/Blood Transfusion Reactions: No Reported Reaction Past Psychological History: No Psychological Hx Reported Smoking Status: Vaper Past Alcohol Use History: None Reported Past Drug Use History: Marijuana - Past Family History Mother Family Medical History: No Reported History General Exam - General Exam Comments Initial Comments: GENERAL: Patient is well-developed and well-nourished. Patient is nontoxic and well- hydrated and is in mild distress. ENT: Neck is soft and supple. No significant lymphadenopathy is noted. Oropharynx is clear. Moist mucous membranes. Neck has full range of motion without eliciting any pain. EYES: The sclera were anicteric and conjunctiva were pink and moist. Extraocular movements were intact and pupils were equal round and reactive to light. Eyelids were unremarkable. PULMONARY: Unlabored respirations. Good breath sounds bilaterally. No audible rales rhonchi or wheezing was noted. CARDIOVASCULAR: There is a regular rate and rhythm without any murmurs gallops or rubs. ABDOMEN: Mild epigastric abdominal pain SKIN: Skin is clear with no lesions or rashes and otherwise unremarkable. NEUROLOGIC: Patient is alert and oriented x3. Cranial nerves II through XII are grossly intact. Motor and sensory are also intact. Normal speech, volume and content. Symmetrical smile. MUSCULOSKELETAL: Normal extremities with adequate strength and full range of motion. LYMPHATICS: No significant lymphadenopathy is noted PSYCHIATRIC: Normal psychiatric evaluation. Limitations: no limitations Course Vital Signs 05/30/23 05/30/23 05:21 09:52 Temperature 98.3 F 97.4 F L Pulse Rate 62 68 Respiratory 18 18 Rate Blood Pressure 129/91 123/53 O2 Sat by Pulse 98 97 Oximetry Medical Decision Making - Medical Decision Making This EKG was interpreted by myself. EKG shows sinus rhythm at 64 bpm OK inte rval is 154 QRS is 91 Q-T intervals 420 QTC is 438 per patient's EKG shows no ST segment elevation or depression. No QT prolongation. Was pt. sent in by a medical professional or institution (, PA, COAL CONVEYOR OPERATOR, urgent care, hospital, or detention...) When possible be specific @ -No Did you speak to anyone other than the patient for history (EMS, parent, family, police, friend...)? What history was obtained from this source @ -No Did you review nursing and triage notes (agree or disagree)? Why? @ -I reviewed and agree with nursing and triage notes Were old charts reviewed (outside hosp., previous admission, EMS record, old EKG, old radiological studies, urgent care reports/EKG's, detention records)? Report findings @ -Reviewed prior labs am per charts on this patient. Differential Diagnosis (chest pain, altered mental status, abdominal pain women, abdominal pain men, vaginal bleeding, weakness, fever, dyspnea, syncope, headache, dizziness, GI bleed, back pain, seizure, CVA, palpatations, mental health, musculoskeletal)? @ -Differential Abdominal Pain Women: Appendicitis, Cholecystitis, diverticulosis, ischemic bowel, pancreatitis, hepatitis, UTI, gastroenteritis, AAA, incarcerated hernia, bowel obstruction, constipation, inflammatory bowel, hepatitis, peptic ulcer disease, splenic in farction, perforated viscus, vulvitis, ovarian torsion, PID, kidney stone, placenta abruption, this is not meant to be an all-inclusive list EKG interpreted by me (3pts min.). @ -As above X-rays interpreted by me (1pt min.). @ -None done CT interpreted by me (1pt min.). @ -None done U/S interpreted by me (1pt. min.). @ -None done What testing was considered but not performed or refused? (CT, X-rays, U/S, labs)? Why? @ -None What meds were considered but not given or refused? Why? @ -None Did you discuss the management of the patient with other professionals (professionals i.e. DrKoffi, PA, COAL CONVEYOR OPERATOR, lab, RT, psych nurse, secondary social studies teacher, paper latcher, teacher, fire officer, sponsorship manager)? Give summary @ -No Was smoking cessation discussed for >3mins.? @ -No Was critical care preformed (if so, how long)? @ -No Were there social determinants of health that impacted care today? How? (Homelessness, low income, unemployed, alcoholism, drug addiction, transportation, low edu. Level, literacy, decrease access to med. care, halfway, rehab)? @ -No Was there de-escalation of care discussed even if they declined (Discuss DNR or withdrawal of care, Hospice)? DNR status @ -No What co-morbidities impacted this encounter? (DM, HTN, Smoking, COPD, CAD, Cancer, CVA, ARF, Chemo, Hep., AIDS, mental health diagnosis, sleep apnea, morbid obesity)? @ -None Was patient admitted / discharged? Hospital course, mention meds given and route, prescriptions, significant lab abnormalities, going to OR and other pertinent info. @ -Initially received Zofran but she still continued to be nauseous and vomited times one. I gave the patient droperidol I went back and reevaluated the patient she was no longer having any pain and no longer vomiting and wanted to be discharged home. Undiagnosed new problem with uncertain prognosis? @ -No Drug Therapy requiring intensive monitoring for toxicity (Heparin, Nitro, Insulin, Cardizem)? @ -No Were any procedures done? @ -No Diagnosis/symptom? @ -Acute vomiting Acute, or Chronic, or Acute on Chronic? @ -Acute Uncomplicated (without systemic symptoms) or Complicated (systemic symptoms)? @ -Complicated Side effects of treatment? @ -No Exacerbation, Progression, or Severe Exacerbation? @ -No Poses a threat to life or bodily function? How? (Chest pain, USA, [place], pneumonia, PE, COPD, DKA, ARF, appy, cholecystitis, CVA, Diverticulitis, Homicidal, Suicidal, threat to staff... and all critical care pts) @ -No - Lab Data Result diagrams: 05/30/23 06:07 05/30/23 06:07 Lab Results 05/30/23 05/30/23 05/30/23 Range/Units 06:07 06:07 06:07 WBC 12.2 H (3.8-10.6) k/uL RBC 4.57 (3.80-5.40) m/uL Hgb 12.5 (11.4-16.0) gm/dL Hct 38.1 (34.0-46.0) % MCV 83.3 (80.0-100.0) fL MCH 27.3 (25.0-35.0) pg MCHC 32.8 (31.0-37.0) g/dL RDW 14.5 (11.5-15.5) % Plt Count 290 (150-450) k/uL MPV 7.6 Neutrophils % 56 % Lymphocytes % 35 % Monocytes % 5 % Eosinophils % 1 % Basophils % 1 % Neutrophils # 6.8 (1.3-7.7) k/uL Lymphocytes # 4.3 (1.0-4.8) k/uL Monocytes # 0.7 (0-1.0) k/uL Eosinophils # 0.1 (0-0.7) k/uL Basophils # 0.1 (0-0.2) k/uL Sodium 141 (137-145) mmol/L Potassium 3.7 (3.5-5.1) mmol/L Chloride 104 (98-107) mmol/L Carbon Dioxide 28 (22-30) mmol/L Anion Gap 9 mmol/L BUN 11 (7-17) mg/dL Creatinine 0.74 (0.52-1.04) mg/dL Est GFR (CKD-EPI)AfAm >90 (>60 ml/min/1.73 sqM) Est GFR (CKD-EPI)NonAf >90 (>60 ml/min/1.73 sqM) Glucose 116 H (74-99) mg/dL Calcium 9.1 (8.4-10.2) mg/dL Total Bilirubin 0.3 (0.2-1.3) mg/dL AST 24 (14-36) U/L ALT 26 (4-34) U/L Alkaline Phosphatase 83 (38-126) U/L Total Protein 7.9 (6.3-8.2) g/dL Albumin 4.3 (3.5-5.0) g/dL Amylase 46 (30-110) U/L Lipase 90 (23-300) U/L Urine Color Light Red Urine Appearance Cloudy H (Clear) Urine pH 6.0 (5.0-8.0) Ur Specific [place] 1.034 (1.001-1.035) Urine Protein Trace H (Negative) Urine Glucose (UA) Negative (Negative) Urine Ketones Negative (Negative) Urine Blood Negative (Negative) Urine Nitrite Negative (Negative) Urine Bilirubin Negative (Negative) Urine Urobilinogen 2.0 (<2.0) mg/dL Ur Leukocyte Esterase Negative (Negative) Urine RBC 2 (0-5) /hpf Urine WBC 3 (0-5) /hpf Ur Squamous Epith Cells 35 H (0-4) /hpf Urine Bacteria Rare H (None) /hpf Urine Mucus Many H (None) /hpf Urine HCG, Qual (Not Detectd) 05/30/23 Range/Units 06:07 WBC (3.8-10.6) k/uL RBC (3.80-5.40) m/uL Hgb (11.4-16.0) gm/dL Hct (34.0-46.0) % MCV (80.0-100.0) fL MCH (25.0-35.0) pg MCHC (31.0-37.0) g/dL RDW (11.5-15.5) % Plt Count (150-450) k/uL MPV Neutrophils % % Lymphocytes % % Monocytes % % Eosinophils % % Basophils % % Neutrophils # (1.3-7.7) k/uL Lymphocytes # (1.0-4.8) k/uL Monocytes # (0-1.0) k/uL Eosinophils # (0-0.7) k/uL Basophils # (0-0.2) k/uL Sodium (137-145) mmol/L Potassium (3.5-5.1) mmol/L Chloride (98-107) mmol/L Carbon Dioxide (22-30) mmol/L Anion Gap mmol/L BUN (7-17) mg/dL Creatinine (0.52-1.04) mg/dL Est GFR (CKD-EPI)AfAm (>60 ml/min/1.73 sqM) Est GFR (CKD-EPI)NonAf (>60 ml/min/1.73 sqM) Glucose (74-99) mg/dL Calcium (8.4-10.2) mg/dL Total Bilirubin (0.2-1.3) mg/dL AST (14-36) U/L ALT (4-34) U/L Alkaline Phosphatase (38-126) U/L Total Protein (6.3-8.2) g/dL Albumin (3.5-5.0) g/dL Amylase (30-110) U/L Lipase (23-300) U/L Urine Color Urine Appearance (Clear) Urine pH (5.0-8.0) Ur Specific [place] (1.001-1.035) Urine Protein (Negative) Urine Glucose (UA) (Negative) Urine Ketones (Negative) Urine Blood (Negative) Urine Nitrite (Negative) Urine Bilirubin (Negative) Urine Urobilinogen (<2.0) mg/dL Ur Leukocyte Esterase (Negative) Urine RBC (0-5) /hpf Urine WBC (0-5) /hpf Ur Squamous Epith Cells (0-4) /hpf Urine Bacteria (None) /hpf Urine Mucus (None) /hpf Urine HCG, Qual Not Detected (Not Detectd) Disposition Clinical Impression: Acute vomiting Disposition: HOME SELF-CARE Condition: Good Instructions (If sedation given, give patient instructions): Acute Nausea and Vomiting (ED) Is patient prescribed a controlled substance at d/c from ED?: No Referrals: Derian Burnette Jr, DO [Primary Care Provider] - 1-2 days Time of Disposition: 09:38
[2023-05-30] MEDS ORDERED: ONDANSETRON 4 MG ODT STARTER PACK 2 TAB BTL PO STA (09:39)
[2023-05-30 09:53] VITALS: BP 123/53; PULSE 68; TEMP 97.4
== END 2023-05-30 09:47 | disposition home or self-care (01) ==
LOC: EC 05:13
DX: R11.10 Vomiting, unspecified (principal); F17.290 Nicotine dependence, other tobacco product, uncomplicated; F12.90 Cannabis use, unspecified, uncomplicated
CPT/HCPCS: 36415; 93005; 80053; 82150; 83690; 85025; 81001; 81025; 99284; 96374; S0119; J1790

== ENCOUNTER 2025-02-07 21:20 | Emergency (ER) | payer OTHER ==
[2025-02-07 21:24] VITALS: RESP 18
--- NOTE | 2025-02-07 22:13 | ED ---
Skin/Abscess/FB HPI - General Chief complaint: Skin/Abscess/Foreign Body Stated complaint: lump 36 weeks Time Seen by Provider: 02/07/25 21:33 Source: patient Mode of arrival: ambulatory Limitations: no limitations - History of Present Illness Initial comments: 24-year-old female with history of HS presenting to emergency department with complaints of abscess to her right groin that has been present over the past few days and has been increasing in pain. Patient states that similar abscesses have formed before. Of note, patient states that she is 35 weeks . She denies abdominal pain, vaginal bleeding, urinary symptoms. Denies recent antibiotic use. - Related Data Previous Rx's Medication Instructions Recorded Cephalexin [Keflex] 500 mg PO Q6HR #40 cap 02/07/25 Allergies Allergy/AdvReac Type Severity Reaction Status Date / Time No Known Allergies Allergy Verified 02/07/25 21:24 Review of Systems ROS Statement: Those systems with pertinent positive or pertinent negative responses have been documented in the HPI. ROS Other: All systems not noted in ROS Statement are negative. Past Medical History Past Medical History: No Reported History Additional Past Medical History / Comment(s): HAS BILE DUCT STENT FROM 2020 History of Any Multi-Drug Resistant Organisms: None Reported Past Surgical History: Cholecystectomy Additional Past Surgical History / Comment(s): bile duct stent, removed Past Anesthesia/Blood Transfusion Reactions: No Reported Reaction Past Psychological History: No Psychological Hx Reported Smoking Status: Vaper Past Alcohol Use History: None Reported Past Drug Use History: Marijuana - Past Family History Mother Family Medical History: No Reported History General Exam Limitations: no limitations General appearance: alert, in no apparent distress ENT exam: Present: normal exam, mucous membranes moist Neck exam: Present: normal inspection. Absent: tenderness, meningismus, lymphadenopathy Respiratory exam: Present: normal lung sounds bilaterally. Absent: respiratory distress, wheezes, rales, rhonchi, stridor Cardiovascular Exam: Present: regular rate, normal rhythm, normal heart sounds. Absent: systolic murmur, diastolic murmur, rubs, gallop, clicks GI/Abdominal exam: Present: soft, normal bowel sounds. Absent: distended, tenderness, guarding, rebound, rigid Extremities exam: Present: other (left upper thigh/groin abscess 4 mm in diameter-fluctuant) Course Vital Signs 04/13/25 04/13/25 21:21 22:17 Temperature 97.8 F 98.2 F Pulse Rate 87 84 Respiratory 18 18 Rate Blood Pressure 109/72 117/73 O2 Sat by Pulse 99 98 Oximetry Procedures - Incision & Drainage Consent Obtained: verbal consent Site: other (groin) Anesthetic Used: lidocaine 1% I&D Cleaning Method: Chloroprep Scalpel Used: #11 Needle Aspiration Performed?: No I&D Drainage Obtained: Pus, Blood Culture Obtained?: No Patient Tolerated Procedure: well, no complications Medical Decision Making - Medical Decision Making Was pt. sent in by a medical professional or institution (, [facility], ARTIFICIAL PEARL MAKER, urgent care, hospital, or long-term...) When possible be specific @ -No Did you speak to anyone other than the patient for history (EMS, parent, family, police, friend...)? What history was obtained from this source @ -No Did you review nursing and triage notes (agree or disagree)? Why? @ -I reviewed and agree with nursing and triage notes Were old charts reviewed (outside hosp., previous admission, EMS record, old EKG, old radiological studies, urgent care reports/EKG's, long-term records)? Report findings @ -No old charts were reviewed Differential Diagnosis (chest pain, altered mental status, abdominal pain women, abdominal pain men, vaginal bleeding, weakness, fever, dyspnea, syncope, headache, dizziness, GI bleed, back pain, seizure, CVA, palpatations, mental health, musculoskeletal)? @ -Abscess, cellulitis, this is not all inclusive EKG interpreted by me (3pts min.). @ -None X-rays interpreted by me (1pt min.). @ -None done CT interpreted by me (1pt min.). @ -None done U/S interpreted by me (1pt. min.). @ -None done What testing was considered but not performed or refused? (CT, X-rays, U/S, labs)? Why? @ -None What meds were considered but not given or refused? Why? @ -None Did you discuss the management of the patient with other professionals (professionals i.e. [facility] [place], ARTIFICIAL PEARL MAKER, lab, RT, psych nurse, social services designee, die designer, teacher, [employer]. revenue officer, case management rn)? Give summary @ -No Was smoking cessation discussed for >3mins.? @ -No Was critical care preformed (if so, how long)? @ -No Were there social determinants of health that impacted care today? How? (Homelessness, low income, unemployed, alcoholism, drug addiction, transportation, low edu. Level, literacy, decrease access to med. care, residential, rehab)? @ -No Was there de-escalation of care discussed even if they declined (Discuss DNR or withdrawal of care, Hospice)? DNR status @ -No What co-morbidities impacted this encounter? (DM, HTN, Smoking, COPD, CAD, Cancer, CVA, ARF, Chemo, Hep., AIDS, mental health diagnosis, sleep apnea, morbid obesity)? @ -None Was patient admitted / discharged? Hospital course, mention meds given and route, prescriptions, significant lab abnormalities, going to OR and other pertinent info. @ -Discharge. 24-year-old female presenting with abscess). Successful incision and drainage completed. Prescribed antibiotics. Return parameters discussed. Case discussed with Dr. Yuen Undiagnosed new problem with uncertain prognosis? @ -No Drug Therapy requiring intensive monitoring for toxicity (Heparin, Nitro, Insulin, Cardizem)? @ -No Were any procedures done? @ -I&D Diagnosis/symptom? @ -abscess Acute, or Chronic, or Acute on Chronic? @ -acute Uncomplicated (without systemic symptoms) or Complicated (systemic symptoms)? @ -uncomplicated Side effects of treatment? @ -No Exacerbation, Progression, or Severe Exacerbation? @ -No Poses a threat to life or bodily function? How? (Chest pain, USA, [place], pneumonia, PE, COPD, DKA, ARF, appy, cholecystitis, CVA, Diverticulitis, Homicidal, Suicidal, threat to staff... and all critical care pts) @ -No Disposition Clinical Impression: Abscess Disposition: HOME SELF-CARE Condition: Good Instructions (If sedation given, give patient instructions): Abscess Incision and Drainage (ED) Additional Instructions: Please return to the Emergency Department if symptoms worsen or any other concerns. Prescriptions: Cephalexin [Keflex] 500 mg PO Q6HR #40 cap Is patient prescribed a controlled substance at d/c from ED?: No Referrals: Derian Burnette Jr, DO [Primary Care Provider] - 1-2 days Time of Disposition: 22:13
[2025-02-07] MEDS: CEPHALEXIN 500 MG CAP PO STA (22:16)
[2025-02-07 22:19] VITALS: BP 117/73; PULSE 84; TEMP 98.2
[2025-02-07] MEDS: CEPHALEXIN 250 MG CAP PO STA (22:25)
== END 2025-02-07 22:30 | disposition home or self-care (01) ==
LOC: EC 21:20
DX: O99.712 Diseases of the skin and subcutaneous tissue complicating pregnancy, second trimester (principal); L02.416 Cutaneous abscess of left lower limb; O99.331 Smoking (tobacco) complicating pregnancy, first trimester; F17.290 Nicotine dependence, other tobacco product, uncomplicated; Z3A.36 36 weeks gestation of pregnancy
CPT/HCPCS: 10060; 99282

== ENCOUNTER 2025-02-27 12:04 | Outpatient (CLI) | payer OTHER ==
[2025-02-27 13:08] VITALS: BP 111/72; PULSE 97; RESP 16; TEMP 97.2
--- NOTE | 2025-03-18 09:59 | P.MSEPDOC ---
Presenting Problems - Arrival Data Date of Arrival on Unit: 02/27/25 Time of Arrival on Unit: 12:04 Mode of Transport: Ambulatory - Complaint OB-Reason for Admission/Chief Complaint: Decreased Movement Medical History - Information : 3 Para: 2 Term: 2 : 0 Abortions: Spontaneous or Elective: 0 Number of Living Children: 2 - Gestational Age Gestational Age by REGINA (wks/days): 38 Weeks and 3 Days - History Complications: Smoker Review of Systems - Review of Systems Constitutional: No problems Breast: No problems ENT: No problems Cardiovascular: No problems Respiratory: No problems Gastrointestinal: No problems Genitourinary: No problems Musculoskeletal: No problems Neurological: No problems Skin: No problems Vital Signs - Temperature Temperature: 97.2 F Temperature Source: Temporal Artery Scan - Pulse Right Brachial Pulse Rate: 97 Pulse Assessment Method: Automatic Cuff - Respirations Respiratory Rate: 16 Oxygen Delivery Method: Room Air O2 Sat by Pulse Oximetry: 98 - Blood Pressure Right Arm Blood Pressure: 111/72 Blood Pressure Mean: 85 Blood Pressure Source: Automatic Cuff Medical Screen Scoring - Assessment - Baby A Baseline FHR: 135 Heart Rate - NICHD Category: Category I (Normal) NST: Reactive Physician Notification - Physician Notified Physician Notified Date: 02/27/25 Physician Notified Time: 12:25 Physician: Aviva Darnell New Order Received: Yes - Notification Comment Comment: Dr. Darnell in dept. Report given to Orders received to d/c pt to home following reactive NST. RN may keep pt on for extended time for reassurance. Maternal Triage Index - Urgent/Priority 2 Urgent Priority 2: Yes Provider Notified: Aviva Darnell Provider Notified Time: 12:25 Criteria Met for Priority 2: Pt c/o of decreased movement. Disposition - Disposition OB Disposition: Discharge to home Discharge Date: 02/27/25 Discharge Time: 12:42 I agree with the RN Medical Screening Exam: Yes Case reviewed; plan agreed upon as documented in EMR&OBIX.: Yes Diagnosis: DECREASED MOVEMENTS, THIRD TRIMESTER, FETUS 1
== END 2025-02-27 12:42 | disposition home or self-care (01) ==
LOC: FBPOP 12:04
PROVIDERS: ATTEND Obstetrics & Gynecology Obstetrics
DX: O36.8131 Decreased fetal movements, third trimester, fetus 1 (principal); O99.333 Smoking (tobacco) complicating pregnancy, third trimester; F19.20 Other psychoactive substance dependence, uncomplicated; Z3A.38 38 weeks gestation of pregnancy
CPT/HCPCS: 59025; G0463; 99213

== ENCOUNTER 2025-03-16 06:00 | Inpatient (IN) | payer OTHER ==
[2025-03-16] MEDS ORDERED: CARBOPROST TROMETHAMINE 250 MCG/ML 1 ML AMP IM PRN (06:36)
[2025-03-16] MEDS ORDERED: LIDOCAINE 0.5% (PF) 5 MG/ML (50 ML SDV) SQ PRN (06:36)
[2025-03-16] MEDS ORDERED: miSOPROStoL 200 MCG TAB PO PRN (06:36)
[2025-03-16] MEDS ORDERED: TRANEXAMIC 1,000 MG/100ML-NACL 1,000 MG in EMPTY BAG 1 BAG IV PRN (06:36)
[2025-03-16] MEDS ORDERED: OXYTOCIN 10 UNIT/ML 1 ML VIAL IM PRN (06:36)
[2025-03-16] MEDS ORDERED: METHYLERGONOVINE 0.2 MG/ML 1 ML AMP IM PRN (06:36)
[2025-03-16] MEDS ORDERED: TERBUTALINE 1 MG/ML VIAL SQ PRN (06:36)
[2025-03-16] MEDS ORDERED: miSOPROStoL 200 MCG TAB RECTAL PRN (06:36)
[2025-03-16 06:57] LABS: Basophils # (A) 0.04 10*3/uL (0.00-0.10); Basophils % (A) 0.4 %; Eosinophils # (A) 0.05 10*3/uL (0.04-0.35); Eosinophils % (A) 0.5 %; HCT 35.2 % (37.2-46.3); HGB 11.9 g/dL (12.0-15.0); Lymphocytes # (A) 3.17 10*3/uL (0.90-5.00); Lymphocytes % (A) 29.8 %; MCHC 33.8 g/dL (32.0-37.0); MCV 85.6 fL (80.0-97.0); Mean Platelet Volume 10.4 fL (9.5-12.2); Monocytes # (A) 0.76 10*3/uL (0.20-1.00); Monocytes % (A) 7.1 %; Neutrophils # (A) 6.58 10*3/uL (1.80-7.70); Neutrophils % (A) 61.8 %; Platelet Count 213 10*3/uL (140-440); RBC 4.11 10*6/uL (4.10-5.20); RDW 13.3 % (11.5-14.5); WBC 10.64 10*3/uL (4.50-10.00)
[2025-03-16] MEDS: LACTATED RINGERS 1,000 ML IV SCH (07:22)
[2025-03-16] MEDS: OXYTOCIN 30 UNITS/500 ML NS 30 UNIT in SALINE 1 500ML.BAG IV SCH (07:22)
[2025-03-16] MEDS ORDERED: BUTORPHANOL 1 MG/ML 1 ML VIAL IV PRN (08:31)
--- NOTE | 2025-03-16 08:36 | P.HPOB ---
History of Present Illness H&P Date: 03/16/25 Chief Complaint: 40-6/7 weeks, induction The patient is a 24-year-old 3 para 2-0-0-2 admitted at 40-6/7 weeks as established by last menstrual period and confirmed by 9-week ultrasound. She is admitted for postdates induction of labor with all signs reassuring, category 1 heart rate tracing. She has been essentially uncomplicated though she was found in the third trimester with polyhydramnios for which she had weekly reassuring testing. The polyhydramnios has resolved as of her due date. Group B strep status is negative. Obstetrical history: 3 para 2-0-0-2 with 2 term vaginal deliveries without complications. Current statistics are listed in history of present illness. EDC of 03/10/2025 was established by last menstrual period and confirmed by 9-week ultrasound. Laboratory workup demonstrates a blood type of A+ with a negative antibody screen. Rubella status is immune. The remainder of the laboratory workup was within normal limits. 1 hour Glucola was normal and group B strep status is negative. Gynecologic history: Unremarkable with no history of any infections to include STDs. Review of Systems Review of systems is confined to history of present illness. Past Medical History Past Medical History: No Reported History Additional Past Medical History / Comment(s): HAS BILE DUCT STENT FROM 2020 History of Any Multi-Drug Resistant Organisms: None Reported Past Surgical History: Cholecystectomy Additional Past Surgical History / Comment(s): bile duct stent, removed Past Anesthesia/Blood Transfusion Reactions: No Reported Reaction Past Psychological History: No Psychological Hx Reported Smoking Status: Vaper Past Alcohol Use History: None Reported Past Drug Use History: Marijuana Additional Drug Use History / Comment(s): used marijuana 3 weeks ago - Past Family History Mother Family Medical History: No Reported History Medications and Allergies Home Medications Medication Instructions Recorded Confirmed Type Cephalexin [Keflex] 500 mg PO Q6HR #40 cap 02/07/25 02/27/25 Rx Vit No.179/Iron/Folic 1 tab PO ONCE 02/27/25 02/27/25 History [ Tablet] Allergies Allergy/AdvReac Type Severity Reaction Status Date / Time No Known Allergies Allergy Verified 03/16/25 06:36 Exam Vital Signs Temp Pulse Resp BP Pulse Ox 03/16/25 06:35 96.9 F L 99 16 111/53 97 Intake and Output 03/15/25 03/16/25 03/16/25 22:59 06:59 14:59 Other: Weight 110.677 kg In general, this is a well-developed, moderately obese white female in no acute distress. Her heart has a regular rhythm and rate without murmur. Her lungs are clear to auscultation bilaterally in all sutton. Her abdomen is gravid, nondistended, has normal active bowel sounds, is soft, nontender, and without any palpable masses aside from the uterine fundus. Her extremities are without any cyanosis, clubbing, or significant edema and are nontender to palpation bilaterally. Digital cervical examination demonstrates her cervix to be approximately 3 cm dilated, 50% effaced, with the vertex and presentation at -2 station. Artificial rupture of membranes is carried out demonstrating clear fluid. Results Result Diagrams: 03/16/25 06:48 Abnormal Lab Results - Last 24 Hours (Table) 03/16/25 Range/Units 06:48 WBC 10.64 H (4.50-10.00) 10*3/uL Hgb 11.9 L (12.0-15.0) g/dL Hct 35.2 L (37.2-46.3) % Assessment and Plan (1) Post-dates Current Visit: Yes Status: Acute Code(s): O48.0 - POST-TERM SNOMED Code(s): 86270037 Plan: Is admitted for postdates induction of labor. Pitocin augmentation has been started. She has undergone artificial rupture of membranes. She will have hernan se maternal and surveillance and expectant management will be practiced. She is a good candidate for either IV or epidural analgesia, which ever she may choose.
[2025-03-16 08:37] LABS: Amphetamine Screen,Urine Not Detected (NotDetected); Barbiturate Screen,Urine Not Detected (NotDetected); Benzodiazepines Screen,Urine Not Detected (NotDetected); Cocaine Screen,Urine Not Detected (NotDetected); Methadone Screen, Urine Not Detected (NotDetected); Opiate Screen,Urine Not Detected (NotDetected); Oxycodone Screen, Urine Not Detected (NotDetected); Phencyclidine Screen,Urine Not Detected (NotDetected); Tricyclic Antidepressant,Urine Not Detected (NotDetected); Urn Cannabinoid Scrn Not Detected (NotDetected)
[2025-03-16] MEDS ORDERED: SODIUM CHLORIDE 0.9% 250 ML BAG ONE (09:51)
[2025-03-16] MEDS ORDERED: fentaNYL (PF) 50 MCG/ML 5 ML AMP ONE (09:51)
[2025-03-16] MEDS ORDERED: ROPIVACAINE 5 MG/ML 30 ML VIAL ONE (09:51)
[2025-03-16] MEDS ORDERED: SIMETHICONE 80 MG CHEWABLE PO PRN (11:54)
[2025-03-16] MEDS ORDERED: HYDROCORTISONE 2.5% RECTAL CREAM 30 GM TUBE RECTAL PRN (11:54)
[2025-03-16] MEDS ORDERED: ZOLPIDEM 5 MG TAB PO PRN (11:54)
[2025-03-16] MEDS ORDERED: LANOLIN CREAM 1 GM TUBE TOPICAL PRN (11:54)
[2025-03-16] MEDS ORDERED: BENZOCAINE/MENTHOL SPRAY 1 GM/SPRAY AEROSOL TOPICAL PRN (11:54)
[2025-03-16] MEDS ORDERED: diphenhydrAMINE 50 MG/ML 1 ML VIAL IVP PRN ×2 (11:54)
[2025-03-16] MEDS ORDERED: diphenhydrAMINE 50 MG CAP PO PRN (11:54)
--- NOTE | 2025-03-16 11:58 | P.PROBDLV ---
Vaginal Delivery Note - . Vaginal Delivery Note: The patient is a 24-year-old 3 para 2-0-0-2 admitted at 40 with all signs reassuring, category 1 heart rate tracing. Her has been uncomplicated aside from third trimester polyhydramnios which resolved with most recent ultrasound. testing was reassuring. On labor and delivery, she had Pitocin started followed by artificial rupture of membranes for clear fluid. She made progress into the active phase of labor and had an epidural c atheter placed for analgesia. She progressed fairly quickly to complete and then pushed over the course of 1 contraction to a normal spontaneous vaginal delivery of a viable 8 pound 10.5 ounce baby boy with Apgars of 9 at 1 minute and 9 at 5 minutes delivered in the left occiput anterior position. There was a loose nuchal cord x 1 which was reduced while in the perineum. The placenta was delivered spontaneously, intact, and grossly normal though very large. There was a grossly normal, centrally inserted three-vessel cord. There were no lacerations of the perineum, vagina, estimated blood loss for the case was approximately 50 mL. All sponge, instrument, and needle counts were correct. There were no complications. Both mother and infant are resting comfortably in recovery.
[2025-03-16] MEDS ORDERED: OXYTOCIN 30 UNITS/500 ML NS 30 UNIT in SALINE 1 500ML.BAG IV SCH (12:00)
[2025-03-16] MEDS: diphenhydrAMINE 25 MG CAP PO PRN (15:29)
[2025-03-16] MEDS: SENNOSIDES-DOCUSATE SODIUM 1 EACH TAB PO SCH (20:28)
[2025-03-16] MEDS: IBUPROFEN 800 MG TAB PO PRN (20:28)
[2025-03-17] MEDS: ACETAMINOPHEN TAB 500 MG TAB PO PRN (00:05)
[2025-03-17 06:25] LABS: Basophils # (A) 0.04 10*3/uL (0.00-0.10); Basophils % (A) 0.4 %; Eosinophils # (A) 0.06 10*3/uL (0.04-0.35); Eosinophils % (A) 0.6 %; HCT 30.6 % (37.2-46.3); HGB 10.3 g/dL (12.0-15.0); Lymphocytes # (A) 3.21 10*3/uL (0.90-5.00); Lymphocytes % (A) 33.8 %; MCH 29.2 pg (27.0-32.0); MCHC 33.7 g/dL (32.0-37.0); MCV 86.7 fL (80.0-97.0); Mean Platelet Volume 10.3 fL (9.5-12.2); Monocytes # (A) 0.75 10*3/uL (0.20-1.00); Monocytes % (A) 7.9 %; Platelet Count 164 10*3/uL (140-440); RBC 3.53 10*6/uL (4.10-5.20); RDW 13.6 % (11.5-14.5); WBC 9.49 10*3/uL (4.50-10.00)
[2025-03-17 08:46] VITALS: BP 111/69; PULSE 88; RESP 16; TEMP 97.8
--- NOTE | 2025-03-17 09:37 | P.DS ---
Providers Date of admission: 03/16/25 06:00 Expected date of discharge: 03/17/25 Attending physician: Miller Abbott Primary care physician: Stated None - Discharge Diagnosis(es) (1) Post-dates Current Visit: Yes Status: Acute (2) Normal spontaneous vaginal delivery Current Visit: Yes Status: Acute Hospital Course: Patient is a 24-year-old 3 para 2-0-0-2 admitted at 40-6/7 weeks by good dating parameters. She is admitted for postdates induction of labor with all signs reassuring, category 1 heart rate tracing. Her was uncomplicated though she did have polyhydramnios in the third trimester which resolved as of her last ultrasound. Group B strep status is negative. On labor and delivery, she had Pitocin started followed by artificial rupture of membranes for clear fluid. She had an epidural catheter placed around the onset of the active phase of labor and progressed quickly to complete. She pushed to a normal spontaneous vaginal delivery of a viable 8 pound 10.5 ounce baby boy with Apgars of 9 at 1 and 5 minutes. Her course was unremarkable with vital signs remaining stable and her temperature was afebrile throughout. She was deemed stable for discharge on day #1 and was discharged home to follow-up in the office in 6 weeks time routinely. Discharge instructions included calling for any significantly increased bleeding or foul-smelling lochia, significantly increased fever abdominal pain, perineal complaints, breast complaints, or anything else that concerned her. She was additionally instructed to have nothing in the vagina for at least 6 weeks time to include intercourse. She understood her instructions and agrees to follow-up as noted above. Discharge medications included continue counter analgesic pain medications. Maternal blood type is A+ and rubella status is immune. Procedures: #1. Pitocin induction #2. Range #3. Epidural analgesia #4. Normal spontaneous vaginal delivery Patient Condition at Discharge: Stable Plan - Discharge Summary New Discharge Prescriptions: No Action Cephalexin [Keflex] 500 mg PO Q6HR #40 cap Vit No.179/Iron/Folic [ Tablet] 1 tab PO ONCE Discharge Medication List Cephalexin [Keflex] 500 mg PO Q6HR #40 cap 02/07/25 [Rx] Vit No.179/Iron/Folic [ Tablet] 1 tab PO ONCE 02/27/25 [History] Follow up Appointment(s)/Referral(s): Miller Abbott MD [STAFF PHYSICIAN] - 04/27/25 1:00 pm Discharge Disposition: HOME SELF-CARE
== END 2025-03-17 16:05 | disposition home or self-care (01) | DRG 560 ==
LOC: 4FBP 06:00
PROVIDERS: ADMIT Obstetrics & Gynecology; ATTEND Obstetrics & Gynecology
PROC: 10907ZC Drainage of Amniotic Fluid, Therapeutic from Products of Conception, Via Natural or Artificial Opening (ICD-10-PCS; principal; 2025-03-16)
PROC: 3E033VJ Introduction of Other Hormone into Peripheral Vein, Percutaneous Approach (ICD-10-PCS; principal; 2025-03-16)
PROC: 10E0XZZ Delivery of Products of Conception, External Approach (ICD-10-PCS; principal; 2025-03-16)
DX: O48.0 Post-term pregnancy (principal); O40.3XX0 Polyhydramnios, third trimester, not applicable or unspecified; O36.63X0 Maternal care for excessive fetal growth, third trimester, not applicable or unspecified; O99.334 Smoking (tobacco) complicating childbirth; F17.290 Nicotine dependence, other tobacco product, uncomplicated; O69.81X0 Labor and delivery complicated by cord around neck, without compression, not applicable or unspecified; Z37.0 Single live birth; Z3A.40 40 weeks gestation of pregnancy
CPT/HCPCS: 80306; 85025; 86850; 86900; 86901